=== PATIENT | female | born 1970 | race Caucasian/White ===

== ENCOUNTER 2021-06-28 07:29 | Emergency (ER) | payer BC ==
[~2021-06-28] VITALS: Ht 162.6 cm; Wt 66.4 kg
--- NOTE | 2021-06-28 07:45 | PHYS DOC ---
Past History Past Medical History: High Cholesterol Adult General Chief Complaint Chief Complaint: RIB PAIN HPI HPI Patient is a 51-year-old female presenting via POV for reproducible chest wall pain. Patient reports she has history of high cholesterol, no other diagnosed medical conditions. States she was also a smoker but quit 4 days ago. Reports ever since quitting, she has had a dry nonproductive cough. She subsequently developed left-sided chest wall pain that is reproducible with palpation, deep breaths in and certain twisting movements prompting her to come in for evaluation today. Denies any fever, upper respiratory symptoms, chest pain, ripping or tearing sensation in torso, abdominal pain or other concerning symptoms Review of Systems Review of Systems Fourteen body systems of review of systems have been reviewed. See HPI for pertinent positives and negative responses, other carbajal all other systems are negative, non-pertinent or non-contributory Allergies Allergies Allergies Coded Allergies Type Severity Reaction Last Updated Verified No Known Drug Allergies 06/28/21 No Physical Exam Physical Exam Constitutional: Well developed, well nourished, no acute distress, non-toxic appearance. HENT: Normocephalic, atraumatic, bilateral external ears normal, oropharynx moist, no oral exudates, nose normal. Eyes: PERRLA, EOMI, conjunctiva normal, no discharge. Neck: Normal range of motion, no tenderness, supple, no stridor. Cardiovascular: Heart rate regular, sinus rhythm, no murmurs rubs or gallops. Tenderness to palpation to left anterior and lateral chest wall without obvious visible and/or palpable abnormalities Lungs & Thorax: Bilateral breath sounds clear to auscultation Abdomen: Bowel sounds normal, soft, no tenderness, no masses, no pulsatile masses. Nonsurgical abdomen, no peritoneal signs Skin: Warm, dry, no erythema, no rash. Back: No tenderness, no CVA tenderness. Extremities: No tenderness, no cyanosis, no clubbing, ROM intact, no edema. Neurologic: Alert and oriented X 3, grossly normal motor & sensory function, no focal deficits noted. Psychologic: Anxious affect and mood Current Patient Data Vital Signs Vital Signs Date Time Temp Pulse Resp B/P (MAP) Pulse Ox O2 Delivery O2 Flow Rate FiO2 06/28/21 07:37 98.1 67 18 133/76 (95) 98 Room Air Vital Signs Date Time Temp Pulse Resp B/P (MAP) Pulse Ox O2 Delivery O2 Flow Rate FiO2 06/28/21 07:37 98.1 67 18 133/76 (95) 98 Room Air EKG EKG EKG ordered and interpreted by myself at 0815 hrs. as sinus rhythm at 57 bpm, unremarkable intervals, no axis deviation, no acute ischemic findings, no STEMI Radiology/Procedures Radiology/Procedures XR RIBS MIN 3 VIEWS LT W/PA CHEST History: Left chest wall pain. Comparison: None. Technique: PA and lateral chest radiographs. Findings: The lungs are adequately and symmectrically inflated. No airspace consolidation, pleural effusion or pneumothorax. The cardiomediastinal silhoutte and pulmonary vasculature are within normal limits. No rib fractures identified. There is mild irregular margins of the superior cortex of the left anterior ninth rib. Impression: 1. Mild irregularity of the superior cortex of the anterior left ninth rib. A rib lesion is not excluded. Recommend noncontrast CT of the chest for further evaluation. 2. No acute cardiopulmonary findings. Electronically signed by: Ruben Tenorio MD (06/28/2021 8:41 AM) [id number] ////////////////////////// CT THORAX WO Clinical Indication: Reason: left anterior 9th rib abnormality on chest xray. Left chest wall pain. Comparison: Left rib series, earlier same day. TECHNIQUE: Helical CT imaging of the chest performed without IV contrast. Findings: There are 2 6-7 mm left thyroid nodules. There are benign axillary lymph nodes. There are a few subcentimeter mediastinal lymph nodes. No adenopathy is seen. The great vessels are normal caliber. There is mild coronary artery disease. The cardiac size is normal, no pericardial effusion. No pleural effusion or pneumothorax. The central airways are patent. Tiny right upper lobe calcified granuloma. There is a 5 mm groundglass nodule in the anterior right lower lobe, image 75. Lungs otherwise clear. The visualized upper abdomen is unremarkable. No acute rib abnormality is identified. Please note the anterior left ninth rib is not imaged. The thoracic spine alignment is maintained. IMPRESSION: 1. No acute rib abnormality is identified. Please note the inferior most ribs including the anterior left ninth rib are not imaged. 2. No CT explanation for patient's chest wall pain. 3. Mild coronary artery disease. 4. There is a 5 mm groundglass nodule in the anterior right lower lobe. Consider CT chest follow-up in 12 months if patient has risk factors for lung malignancy, otherwise no follow-up is required per Fleischner Society g rodríguez. 5. There are 2 subcentimeter left thyroid nodules. Electronically signed by: Hernan Garner MD (06/28/2021 9:37 AM) [id number] Heart Score C/O Chest Pain: No Risk Factors: Risk Factors: DM, Current or recent (<one month) smoker, HTN, HLP, family history of CAD, obesity. Risk Scores: Risk Factors: DM, Current or recent (<one month) smoker, HTN, HLP, family history of CAD, obesity. Course & Med Decision Making Course & Med Decision Making ABCs unremarkable HPI physical exam and comprehensive ER work-up consisting of EKG and radiograph of chest nonconcerning for any obvious emergent or surgical issues Patient with atypical chest pain, joint decision to defer further diagnostic work-up and treat as if it was costochondritis versus intercostal muscle strain. Tylenol and heat with other supportive care practices and close PCP follow-up advised Also disclosed findings of incidental right lower lobe pulmonary nodule in a patient with extensive smoking history and left-sided thyroid nodules. Appropriate outpatient follow-up recommendations advised Patient aware this might be an acute presentation of more concerning pathology and so, close follow-up stressed. Positive reinforcement given as she is scheduled for outpatient stress test and cardiac scan. PCP follow-up to review visit today stressed Yani Disclaimer Dragon Disclaimer This electronic medical record was generated, in whole or in part, using a voice recognition dictation system. Departure Departure: Impression: Primary Impression: Atypical chest pain Additional Impressions: Right lower lobe pulmonary nodule Left thyroid nodule Disposition: HOME / SELF CARE / HOMELESS Condition: STABLE Referrals: LAZARA SEO (PCP) Additional Instructions: You were seen for chest pain. Your workup did not show any acute abnormalities today, but does not indicate that you do not have underlying cardiovascular disease. You do need to follow up with your primary doctor and potentially a teacher instrumental for further evaluation and treatment. Please utilize heat in addition to Tylenol as needed for pain control. As disclosed, you also had identified right lower lobe lung nodule in addition to multiple left sided thyroid nodules. These should be followed up in outpatient setting by her primary care physician. Thyroid ultrasound and repeat lung CT in 12 months is recommended. You should return to the ED if you develop worsening chest pain, shortness of breath, fever, abnormal sweating, leg swelling, or any other new or concerning symptoms. Problem Qualifiers JUAN PABLO CHAPPELL DO Jun 28, 2021 07:45
--- NOTE | 2021-06-28 08:44 | RAD ---
XR RIBS MIN 3 VIEWS LT W/PA CHEST History: Left chest wall pain. Comparison: None. Technique: PA and lateral chest radiographs. Findings: The lungs are adequately and symmectrically inflated. No airspace consolidation, pleural effusion or pneumothorax. The cardiomediastinal silhoutte and pulmonary vasculature are within normal limits. No rib fractures identified. There is mild irregular margins of the superior cortex of the left anterior ninth rib. Impression: 1. Mild irregularity of the superior cortex of the anterior left ninth rib. A rib lesion is not excl uded. Recommend noncontrast CT of the chest for further evaluation. 2. No acute cardiopulmonary findings. Electronically signed by: Ruben Tenorio MD (06/28/2021 8:41 AM) [id number]
[2021-06-28 09:39] VITALS: BP 128/101
--- NOTE | 2021-06-28 09:39 | RAD ---
PQRS Compliance Statement: One or more of the following individualized dose reduction techniques were utilized for this examinat ion: 1. Automated exposure control 2. Adjustment of the mA and/or kV according to patient size 3. Use of iterative reconstruction technique CT THORAX WO Clinical Indication: Reason: left anterior 9th rib abnormality on chest xray. Left chest wall pain. Comparison: Left rib series, earlier same day. TECHNIQUE: Helical CT imaging of the chest performed without IV contrast. Findings: There are 2 6-7 mm left thyroid nodules. There are benign axillary lymph nodes. There are a few subce ntimeter mediastinal lymph nodes. No adenopathy is seen. The great vessels are normal caliber. There is mild coronary artery disease. The cardiac size is normal, no pericardial effusion. No pleural effusion or pneumothorax. The central airways are patent. Tiny right upper lobe calcified granuloma. There is a 5 mm groundglass nodule in the anterior right lower lobe, image 75. Lungs other carbajal clear. The visualized upper abdomen is unremarkable. No acute rib abnormality is identified. Please note the anterior left ninth rib is not imaged. The th oracic spine alignment is maintained. IMPRESSION: 1. No acute rib abnormality is identified. Please note the inferior most ribs including the anterior left ninth rib are not imaged. 2. No CT explanation for patient's chest wall pain. 3. Mild coronary artery disease. 4. There is a 5 mm groundglass nodule in the anterior right lower lobe. Consider CT chest follow-up in 12 months if patient has risk factors for lung malignancy, otherwise no follow-up is required per Fleischner Society guidelines. 5. There are 2 subcentimeter left thyroid nodules. Electronically signed by: Hernan Garner MD (06/28/2021 9:37 AM) [id number]
== END 2021-06-28 09:56 | disposition home or self-care (01) ==
LOC: ER 07:29
DX: R07.89 Other chest pain (principal); R91.1 Solitary pulmonary nodule; E04.1 Nontoxic single thyroid nodule; E78.00 Pure hypercholesterolemia, unspecified
CPT/HCPCS: 71101; 71250; 99284

== ENCOUNTER → 2021-07-03 | Outpatient (CLI) | payer BC ==
[2021-06-28 09:39] VITALS: BP 128/101
--- NOTE | 2021-07-04 08:07 | RAD ---
CT ABDOMEN W/O CONTRAST History: Left-sided abdomen pain for 1.5 weeks. Comparison: None. Technique: Noncontrast CT of the abdomen and pelvis. Findings: The lung bases are clear. No pleural or pericardial effusion. Mild coronary artery calcification. The liver is normal. The gallbladder, pancreas, spleen, and adrenal glands are within normal limits. No nephrolithiasis hydronephrosis or hydroureter. The stomach is well distended with ingested products. The visualized portions of the small bowel and colon are unremarkable. Partially visualized appendix is normal in caliber. No unopacified vasculatur e demonstrates aortic calcification without aneurysm. No adenopathy. No free air or free fluid. Soft tissues are unremarkable. No acute osseous abnormalities. Impression: 1. No acute findings in the abdomen. ------ Exposure: One or more of the following individualized dose reduction techniques were utilized for thi s examination: 1. Automated exposure control 2. Adjustment of the mA and/or kV according to patient size 3. Use of iterative reconstruction technique. Electronically signed by: Ruben Tenorio MD (07/04/2021 8:04 AM) [id number]
== END ==
LOC: CT 14:19
PROVIDERS: ATTEND Family Medicine
DX: I25.10 Atherosclerotic heart disease of native coronary artery without angina pectoris (principal); R07.81 Pleurodynia; M89.9 Disorder of bone, unspecified
CPT/HCPCS: 74150